=== PATIENT | male | born 1975 | race Caucasian/White ===

== ENCOUNTER 2016-09-04 15:53 | Emergency (ER) | payer OTHER ==
[2016-09-04 16:01] VITALS: TEMP 97
[2016-09-04] MEDS ORDERED: NITROGLYCERIN 0.4 MG 25 EA TAB SL ONE ×2 (16:01→16:02)
[2016-09-04] MEDS ORDERED: ASPIRIN (CHEWABLE) 81 MG TAB PO ONE (16:02)
[2016-09-04] MEDS ORDERED: NITROGLYCERIN 2% 1 GM UD TOP ONE (16:10)
--- NOTE | 2016-09-04 16:12 | ED.PDOC ---
History of Present Illness - General Chief Complaint: Chest Pain/ID Stated Complaint: chest pain x several hours Time Seen by Provider: 09/04/16 16:02 Source: patient, RN notes reviewed, Vital Signs reviewed Exam Limitations: no limitations - History of Present Illness Initial Comments: Patient comes in via private vehicle with c/o chest pain that started @ 13:00 today while playing golf. Pain has waxed and waned but has not gone away. Pain is pressure with nausea, diaphoresis, SOB and jaw pain. No similar episodes in the past. Timing/Duration: 1-3 hours Severity/Quality: moderate - 6/10, pressure Location: substernal Chest Pain Radiation: jaw Activities at Onset: activity - Playing golf Prior Chest Pain/Cardiac Workup: no prior chest pain, no prior cardiac workup Improving Factors: nothing Worsening Factors: nothing Nitro Today/Relief: 0.4 mg x 2, provided by ED, no relief - so Nitropaste placed - 1 inch Aspirin Treatment Today: 81 mg x 4, provided by ED Associated Symptoms: diaphoresis, nausea/vomiting, shortness of breath Allergies/Adverse Reactions: Allergies NO KNOWN ALLERGY Allergy (Verified 09/04/16 15:58) Review of Systems - Review of Systems Constitutional: States: no symptoms reported EENTM: States: no symptoms reported Respiratory: States: short of breath. Denies: cough Cardiology: States: chest pain. Denies: edema, palpitations, syncope Gastrointestinal/Abdominal: States: nausea. Denies: abdominal pain, vomiting Musculoskeletal: States: no symptoms reported Skin: States: other - diaphoresis Neurological: States: no symptoms reported All other Systems: No Change from Baseline Past Medical History (General) - Patient Medical History Hx Seizures: No Hx Stroke: No Hx Dementia: No Hx Asthma: No Hx of COPD: No Hx Cardiac Disorders: No Hx Congestive Heart Failure: No Hx Pacemaker: No Hx Hypertension: No Hx Thyroid Disease: No Hx Diabetes: No Hx Gastroesophageal Reflux: No Hx Renal Disease: No Hx Cancer: No Hx of HIV: No Hx Hepatitis C: No Hx MRSA: No Surgical History: no surgical history - Vaccination History Hx Tetanus, Diphtheria Vaccination: No Hx Influenza Vaccination: No Hx Pneumococcal Vaccination: No Immunizations Up to Date: No - Social History Hx Tobacco Use: No Hx Chewing Tobacco Use: Yes - can a day Hx Alcohol Use: Yes Hx Substance Use: No Hx Substance Use Treatment: No Hx Depression: No Feels Threatened In Home Enviroment: No Feels Threatened In a Relationship: No Hx Physical Abuse: No Hx Suspected Abuse: No - Female History Patient is a Female of Child Bearing Age (10 -59 yrs old): No Patient : No Family Medical History - Family History Mother Son Family History: No Known Living Status: Still Living Physical Exam - Physical Exam General Appearance: Alert, No apparent distress, Obese, Well Groomed, Well Hydrated, Well Nourished Neck: supple, normal inspection Respiratory: lungs clear, normal breath sounds, no respiratory distress, no accessory muscle use Cardiovascular/Chest: normal peripheral pulses, regular rate, rhythm, no edema, no gallop, no JVD, no murmur Peripheral Pulses: posterior tibialis,right: 2+, posterior tibialis,left: 2+ Gastrointestinal/Abdominal: normal bowel sounds, non tender, soft, other - Obese Extremity: normal range of motion, normal inspection Neurologic: alert, normal mood/affect, oriented x 3 Skin Exam: normal color, warm/dry Comments: Vital Signs 09/04/16 15:58 Temperature 97 F L Pulse Rate [ 89 Left Apical] Respiratory 20 Rate Blood Pressure 152/106 [Left Arm] O2 Sat by Pulse 99 Oximetry Progress - Progress Progress: 09/04/16 16:25 After 2nd SLNTG pain 5/10, 3rd given and Nitropaste 1 inch applied TNKase 50mg IV given 09/04/16 16:32 Currently CP 4/10 - EKG/XRAY/CT EKG: Sinus, ST elevation - II, III, AvF, V4-6 Comments: STEMI Departure - Departure Clinical Impression: ST elevation (STEMI) myocardial infarction Qualifiers: Involved coronary artery: unspecified coronary artery Qualified Code(s): I21.3 - ST elevation (STEMI) myocardial infarction of unspecified site Time of Disposition: 16:34 Disposition: Transfer to Hospital Condition: Serious Departure Forms: ED Discharge - Pt. Copy, Patient Portal Self Enrollment Critical Care Note - Critical Care Note Total Time (mins): 45 Comments: At bedside managing and directing care for STEMI Transfer to Outside Facility - Transfer Information Accepting Provider:: Dr. Carter Crook Accepting Facility: [facility] Reason for Transfer: shift lab technician
[2016-09-04] MEDS ORDERED: TENECTEPLASE 50 MG VIAL ONE (16:20)
[2016-09-04] MEDS ORDERED: TENECTEPLASE 50 MG VIAL IV ONE (16:24)
[2016-09-04] MEDS ORDERED: SODIUM CHLORIDE 0.9% 1000ML 1,000 ML ONE (16:25)
[2016-09-04] MEDS ORDERED: SODIUM CHLORIDE 0.9% 1000ML 1,000 ML IVS PRN (16:31)
--- NOTE | 2016-09-04 16:37 | RAD ---
EXAM DESCRIPTION: Chest,1 View CLINICAL HISTORY: 41 years Male chest pain COMPARISON: None. FINDINGS: The cardiomediastinal silhouette appears unremarkable. No consolidating infiltrates or pleural effusions. No pneumothorax. There is small amount of increased soft tissue density along the lateral aspect of the left chest at the level of the lateral seventh rib. Question pleural-based density, healing or healed rib fracture or overlying soft tissue density. This could be further evaluated with CT. IMPRESSION: Soft tissue density along the left lateral chest wall as described above. Consider further evaluation with CT of the chest Electronically signed by: Melanie Stevens 09/04/2016 4:17 PM CDT
[2016-09-04 16:42] VITALS: BP 140/60; O2SAT 96
== END 2016-09-04 17:00 | disposition short-term general hospital (02) ==
LOC: ER 15:53
DX: I21.3 ST elevation (STEMI) myocardial infarction of unspecified site (principal); F17.220 Nicotine dependence, chewing tobacco, uncomplicated